=== PATIENT | female | born 1955 | race Caucasian/White ===

== ENCOUNTER 2024-02-19 17:08 | Emergency (ER) | payer OTHER, MEDICAID ==
[~2024-02-19] VITALS: Ht 167.6 cm; Wt 103.0 kg
[2024-02-19 17:14] VITALS: BP 164/79; PULSE 77; RESP 18; TEMP 98.6; O2SAT 99
== END 2024-02-19 21:35 | disposition home or self-care (01) ==
LOC: ER 17:08
DX: R53.1 Weakness (principal); E11.9 Type 2 diabetes mellitus without complications; I10 Essential (primary) hypertension; F41.9 Anxiety disorder, unspecified
CPT/HCPCS: 99283